=== PATIENT | female | born 1985 | race Caucasian/White ===

== ENCOUNTER 2018-05-24 16:49 | Emergency (ER) | payer BC ==
[~2018-05-24] VITALS: Ht 160 cm; Wt 58.5 kg
[2018-05-24 16:53] VITALS: Ht 160 cm; Wt 58.5 kg
[2018-05-24 18:12] VITALS: BP 135/108
== END 2018-05-24 18:12 | disposition home or self-care (01) ==
LOC: ED 16:49
DX: J06.9 Acute upper respiratory infection, unspecified (principal); H92.03 Otalgia, bilateral